=== PATIENT | female | born 1930 | race Caucasian/White ===

== ENCOUNTER → 2016-06-25 | Outpatient (REF) | payer MEDICARE ==
[~2016-06-25] MED LIST: ASPI81TA3 OR; SYNT50TA OR; ZETI10TA OR; travatan OU
== END ==
LOC: M SMT 12:39
PROVIDERS: ATTEND Nurse Practitioner Family
DX: R32 Unspecified urinary incontinence (principal)

== ENCOUNTER → 2016-07-01 | Outpatient (CLI) | payer MEDICARE ==
--- NOTE | 2016-07-01 09:39 | REP ---
Clinical: Recurrent urinary tract infection. Technique: Real time [place] scale and color evaluation using curved array transducer. Findings: The bilateral kidneys are essentially normal in contour, size, echogenicity, and reniform shape without hydronephrosis, nephrolithiasis, or renal mass lesion. No perinephric fluid collections are identified. Right kidney measures 11.1 x 4.2 x 4.4 cm. Left kidney measures 10.2 x 4.8 x 5.7 cm with 2.3 cm simple lower pole cyst. The bladder demonstrates few small diverticula and no evidence for significant wall thickening or mass lesion. Bilateral ureteral jets are identified. Prevoid volume equals 472 ml. Postvoid volume equals 225 ml. Postvoid residual equals 47%. Impression: 1. Relatively normal appearance of the bilateral kidneys with 2.3 cm simple lower pole left renal cyst. 2. Bladder demonstrates few likely chronic benign diverticula along with increased postvoid residual volume based on current examination. Signed by Chandana Mosquera MD 07/01/2016 09:31 A
== END ==
LOC: M SMT 08:31
PROVIDERS: ATTEND Nurse Practitioner Family
DX: N39.0 Urinary tract infection, site not specified (principal)

== ENCOUNTER → 2016-09-30 | Outpatient (CLI) | payer MEDICARE ==
--- NOTE | 2016-10-04 06:42 | RADONC ---
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 ECOG PERFORMANCE STATUS: 0. CONSULTATION NOTE: Ms. 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 HISTORY OF PRESENT ILLNESS: The patient was in her usual state of health until she recently and recently noticed a small scaly lesion over her left upper lip measuring approximately 0.75 cm. On 09/10/2016, the patient underwent excisional biopsy and pathology revealed an ulcerated basal cell carcinoma, nodular type. The tumor was present at the lateral margin of resection. The patient is now presenting for consideration of postoperative radiation therapy in attempt to increase local control. PAST MEDICAL HISTORY: The patient's past medical history is positive for a right-sided breast cancer which was treated with lumpectomy and postoperative radiation therapy in this department in 1997. It is also positive for arthritis, cataracts, cardiac problems and hypothyroidism. She has hypertension and history of urinary tract infections. ALLERGIES: The patient is allergic to PENICILLIN. SOCIAL HISTORY: The patient quit smoking in 1961. She had smoked a half-pack of cigarettes per day prior to that. She drinks alcohol socially. FAMILY HISTORY: The patient's family history is positive for a sister with breast cancer and two brothers with colon cancer. REVIEW OF SYSTEMS: The patient's review of systems is positive for some difficulty swallowing since she had coronary bypass surgery. It is otherwise noncontributory. Denies nausea, vomiting, fevers, chills, night sweats, diplopia, headaches, anxiety or depression, anorexia, weight loss, visual disturbances, chest pain, urinary or bowel difficulties, bone pain, or neurological problems. PHYSICAL EXAMINATION: The patient is a well-developed, well-nourished, elderly white female in no acute distress. HEENT: Exam is normocephalic, atraumatic. Extraocular movements are intact. There is a small 1-cm reddish raised area over the patient's upper left lip. There are no other lesions present over the patient's scalp, face or neck. Her oral cavity reveals no lesions, nodularity or evidence of disease. There is no palpable preauricular, cervical, supraclavicular, infraclavicular or axillary lymphadenopathy present. Lungs: Clear to auscultation and percussion. Heart has a regular rate and rhythm. ASSESSMENT: Ms. Perales is presenting to us today with what appears to be a stage I, T1N0M0, basal cell carcinoma of her left upper lip. Clearly, the patient is a candidate for this radiation treatment and I have so informed her. I have discussed with the patient in detail the potential benefits as well as possible acute and chronic sequelae of external beam radiation therapy. We discussed logistics of treatment planning, simulation and subsequent fractionated daily radiation treatments. I have scheduled the patient for the next available simulation slot and radiation treatments will begin subsequently. Thank you for allowing us to participate in the care of this very pleasant woman. If I can be of any further assistance or provide you with any information, please free to contact me anytime. As always warm regards. cc: *Adrián Mata MD
== END ==
LOC: M ONCR 13:10
PROVIDERS: ATTEND Radiology Radiation Oncology
DX: C44.01 Basal cell carcinoma of skin of lip (principal); Z85.3 Personal history of malignant neoplasm of breast; M19.90 Unspecified osteoarthritis, unspecified site; I10 Essential (primary) hypertension; E03.9 Hypothyroidism, unspecified; Z92.3 Personal history of irradiation

== ENCOUNTER 2016-10-06 14:03 | Outpatient (RCR) | payer MEDICARE ==
--- NOTE | 2016-10-06 14:14 | RADONC ---
RADIATION ONCOLOGY SIMULATION NOTE: DATE: 10/06/2016 CHART NO: [id number] Ms. Perales was taken to the linear accelerator today for clinical setup of her electron beam upper lip field. Setup was accomplished without difficulty or discomfort. Radiation treatment planning is underway and radiation treatments will begin subsequently. An immobilization device was created and will be used throughout the course of treatment. Lead shielding was placed under the treated lip to protect her teeth and gums. Lead eye bauer were also placed over the patient's eyes. 0.5 cm of tissue equivalent bolus will be utilized. I was physically present throughout the course of CT simulation.
== END 2016-10-17 ==
LOC: M ONCR 14:03
PROVIDERS: ATTEND Radiology Radiation Oncology
DX: C00.0 Malignant neoplasm of external upper lip (principal)

== ENCOUNTER 2016-10-18 13:44 | Outpatient (RCR) | payer MEDICARE ==
--- NOTE | 2016-10-19 10:38 | RADONC ---
RADIATION ONCOLOGY PROGRESS NOTE DATE: 10/18/2016 CHART NUMBER: [id number] Ms. Perales underwent her first fraction of radiation today to her upper lip. It was treated without difficulty or discomfort. The patient's review of systems noncontributory. She denies nausea, vomiting, fevers, chills, night sweats, diplopia, headaches, anxiety or depression, anorexia, weight loss, visual disturbances, chest pain, urinary or bowel difficulties, bone pain, or neurological problems. PHYSICAL EXAMINATION: The patient's skin remains unchanged with no evidence of radiation change present. Her physical exam remains unchanged since time of consultation. Ms. Perales tolerated her first fraction quite well and radiation will continue as scheduled.
--- NOTE | 2016-10-26 07:57 | RADONC ---
RADIATION ONCOLOGY PROGRESS NOTE DATE: 10/25/2016 CHART NUMBER: [id number]. PROGRESS NOTE: Ms. Perales is presently a dose of 1200 cGy to her upper lip and is tolerating treatments quite well at this point with no significant difficulties related to her radiation therapy other than some itchy skin. REVIEW OF SYSTEMS: The patient's review of systems is positive for a CT scan but is otherwise noncontributory. Denies nausea, vomiting, fevers, chills, night sweats, diplopia, headaches, anxiety or depression, anorexia, weight loss, visual disturbances, chest pain, urinary or bowel difficulties, bone pain, or neurological problems. PHYSICAL EXAMINATION: The patient's skin is in excellent condition with no evidence of radiation change present. There is no moist or dry desquamation. The remainder of her physical exam remains unchanged. Ms. Perales is tolerating treatments quite well and radiation will continue as scheduled.
--- NOTE | 2016-11-02 09:41 | RADONC ---
RADIATION ONCOLOGY PROGRESS NOTE DATE: 11/01/2016 CHART NUMBER: [id number] Ms. Perales is presently at a dose of 2200 cGy to her upper lip and is tolerating treatments quite well at this point with no significant difficulties related to her radiation therapy other than some tenderness on the inside of her lip. REVIEW OF SYSTEMS: The patient's review of systems is positive for some lip tenderness, but is otherwise noncontributory. She denies nausea, vomiting, fevers, chills, night sweats, diplopia, headaches, anxiety or depression, anorexia, weight loss, visual disturbances, chest pain, urinary or bowel difficulties, bone pain, or neurological problems. PHYSICAL EXAMINATION: The patient's skin shows some mild to minimal erythema present on the outside. She has some minimal mucositis on the inside of her lip. The remainder of her physical exam remains unchanged. Ms. Perales is tolerating treatments quite well and radiation will continue as scheduled.
--- NOTE | 2016-11-09 06:44 | RADONC ---
RADIATION ONCOLOGY PROGRESS NOTE: DATE: 11/08/2016 CHART NUMBER: [id number]. PROGRESS NOTE: Ms. Perales is presently a dose of 3200 cGy to her upper lip and is tolerating her treatments fairly well. She is complaining of lymph pain and discomfort. REVIEW OF SYSTEMS: The patient's review of systems is positive for lip discomfort but is otherwise noncontributory. Denies nausea, vomiting, fevers, chills, night sweats, diplopia, headaches, anxiety or depression, anorexia, weight loss, visual disturbances, chest pain, urinary or bowel difficulties, bone pain, or neurological problems. PHYSICAL EXAMINATION: The patient's skin shows some erythema present over the treated field. There is no evidence of moist or dry desquamation. On the underside of the lip There is some moderate mucositis. The remainder of the physical exam remains unchanged. Ms. Perales is tolerating treatments quite well and radiation will continue as scheduled.
--- NOTE | 2016-11-17 06:54 | RADONC ---
RADIATION ONCOLOGY PROGRESS NOTE DATE: 11/16/2016 CHART NUMBER: [id number] Ms. Perales is presently at a dose of 3600 cGy to her upper lip and is tolerating her treatments fairly well. She is complaining of some lip pain. REVIEW OF SYSTEMS: The patient's review of systems is positive for lip pain, but is otherwise noncontributory. Denies nausea, vomiting, fevers, chills, night sweats, diplopia, headaches, anxiety or depression, anorexia, weight loss, visual disturbances, chest pain, urinary or bowel difficulties, bone pain, or neurological problems. PHYSICAL EXAMINATION: The patient's skin is in good condition with no evidence of moist or dry desquamation. The remainder of her physical exam remains unchanged. Ms. Perales is tolerating treatments quite well and radiation will continue as scheduled.
== END 2016-11-17 ==
LOC: M ONCR 13:44
PROVIDERS: ATTEND Radiology Radiation Oncology
DX: C00.0 Malignant neoplasm of external upper lip (principal)

== ENCOUNTER 2016-11-18 14:26 | Outpatient (RCR) | payer MEDICARE ==
--- NOTE | 2016-11-24 08:02 | RADONC ---
RADIATION ONCOLOGY PROGRESS NOTE DATE: 11/23/2016 CHART NUMBER: [id number] Ms. Perales is presently at a dose of 4600 cGy to her upper lip and is tolerating treatments quite well at this point with no complaints related to her radiation therapy. She is having no increase in pain. She continues to have lip pain however. She has no other complaints related to her radiation therapy. The patient's review of systems is positive for some lip pain, but is otherwise noncontributory. Denies nausea, vomiting, fevers, chills, night sweats, diplopia, headaches, anxiety or depression, anorexia, weight loss, visual disturbances, chest pain, urinary or bowel difficulties, bone pain, or neurological problems. PHYSICAL EXAMINATION: There is some erythema of the skin over the upper lip as well as some mild mucositis just under the upper lip, but her physical exam is otherwise unchanged. Ms. Perales is tolerating her treatments quite well and radiation will continue as scheduled.
--- NOTE | 2016-11-30 07:41 | RADONC ---
RADIATION ONCOLOGY PROGRESS NOTE DATE: 11/29/2016 CHART NUMBER: [id number] Ms. Perales is presently at a dose of 5400 cGy to her upper lip and is tolerating treatments quite well at this point with no significant difficulties related to her radiation therapy other than some lip discomfort. The patient's review of systems is positive for some discomfort on her inner lip, but is otherwise noncontributory. She denies nausea, vomiting, fevers, chills, night sweats, diplopia, headaches, anxiety or depression, anorexia, weight loss, visual disturbances, chest pain, urinary or bowel difficulties, bone pain, or neurological problems. PHYSICAL EXAMINATION: The patient's skin is in good condition with just some erythema present. There is no moist or dry desquamation. The remainder of physical exam remains unchanged. Ms. Perales is tolerating treatments quite well and radiation will continue as scheduled.
--- NOTE | 2016-12-03 13:14 | RADONC ---
RADIATION ONCOLOGY TREATMENT SUMMARY DATE: 12/02/2016 CHART NUMBER: [id number] DIAGNOSIS: Basal cell carcinoma of the upper lip. STAGE: I, T1N0M0. ECOG PERFORMANCE STATUS: 0 TREATMENT SUMMARY: Ms. Perales is a delightful 86-year-old white female with the diagnosis of a stage I, T1N0M0, basal cell carcinoma of the left upper lip who presented to us for consideration of postoperative radiation therapy in an attempt to achieve local control and cure. We treated the patient to her upper lip for a dose of 6000 cGy delivered in 30 fractions of 200 cGy each over 45 elapsed days from 10/18/2016 through 12/02/2016. The patient's upper lip was treated on the linear accelerator utilizing a 6 MeV electron beam prescribed to the 90% isodose line via an en phos technique. 1/2 cm of tissue equivalent bolus was placed over the field. Ms. Perales tolerated her treatment quite well with no significant difficulties related to her radiation therapy. She did have some tenderness of the lip. The patient completed therapy as prescribed without interruption. I have scheduled the patient to see me again in one month for further followup. She will also continue to be followed by her other physicians as well. Thank you for allowing us to participate in the care of this very pleasant woman. If I could provide you with any information or be of any assistance please feel free to contact me anytime. cc: Adrián Mata MD
== END 2016-12-17 ==
LOC: M ONCR 14:26
PROVIDERS: ATTEND Radiology Radiation Oncology
DX: C00.0 Malignant neoplasm of external upper lip (principal)

== ENCOUNTER → 2016-12-29 | Outpatient (CLI) | payer MEDICARE ==
--- NOTE | 2016-12-29 14:34 | RADONC ---
RADIATION ONCOLOGY FOLLOWUP NOTE DATE: 12/29/2016 CHART NUMBER: [id number] DIAGNOSIS: Basal cell carcinoma of upper lip. STAGE: I, T1N0M0. ECOG PERFORMANCE STATUS: 0 FOLLOWUP NOTE: Ms. Perales is a delightful 86-year-old white female with the diagnosis of a stage I, T1N0M0, basal cell carcinoma of the left upper lip who is presenting to us today for routine followup visit 1 month post completion of external beam radiation therapy. The patient presents today reporting that she is doing quite well with no complaints at this time related to her radiation therapy or disease other than some discomfort upon using toothpaste. REVIEW OF SYSTEMS: The patient's review of systems is generally noncontributory. She denies nausea, vomiting, fevers, chills, night sweats, diplopia, headaches, anxiety or depression, anorexia, weight loss, visual disturbances, chest pain, urinary or bowel difficulties, bone pain, or neurological problems. PHYSICAL EXAMINATION: The patient's skin is in excellent condition with no evidence of moist or dry desquamation. There is no evidence of radiation change present. There is no evidence of nodularity, ulceration, residual or recurrent disease. There is no palpable preauricular, cervical, supraclavicular or infraclavicular lymphadenopathy. Her lungs are clear to auscultation and percussion. ASSESSMENT: The patient is clinically KINZA at this time and will be seen by us again in 6 months for further followup. She will also continue to be followed by her other physicians as well. cc: Adrián Mata MD
== END ==
LOC: M ONCR 09:54
PROVIDERS: ATTEND Radiology Radiation Oncology
DX: C00.0 Malignant neoplasm of external upper lip (principal)

== ENCOUNTER → 2017-03-03 | Outpatient (CLI) | payer MEDICARE ==
[2017-03-03 07:44] LABS: MEAN CORPUSCULAR HEMOGLOBIN 29.1 pg (27.0-33.0); MEAN CORPUSCULAR HGB CONC 32.9 g/dl (32.0-36.5); MEAN CORPUSCULAR VOLUME 88.4 fl (80.0-96.0); RED CELL DISTRIBUTION WIDTH 13.4 % (11.5-14.5); WHITE BLOOD COUNT 5.9 K/mm3 (4.0-10.0)
[2017-03-03 08:36] LABS: ALBUMIN 3.7 GM/DL (3.2-5.2); ALBUMIN/GLOBULIN RATIO 1.06 (1.00-1.93); ALKALINE PHOSPHATASE 92 U/L (45-117); ALT/SGPT 32 U/L (12-78); ANION GAP 9 MEQ/L (8-16); AST/SGOT 19 U/L (15-37); BILIRUBIN,TOTAL 0.3 MG/DL (0.2-1.0); BLOOD UREA NITROGEN 11 MG/DL (7-18); CARBON DIOXIDE LEVEL 28 MEQ/L (21-32); CHLORIDE LEVEL 106 MEQ/L (98-107); CHOLESTEROL LEVEL 133 MG/DL (<200); GLOMERULAR FILTRATION RATE > 60.0 (>32); GLUCOSE, FASTING 95 MG/DL (83-110); POTASSIUM SERUM 4.3 MEQ/L (3.5-5.1); SODIUM LEVEL 143 MEQ/L (136-145); TOTAL PROTEIN 7.2 GM/DL (6.4-8.2); TRIGLYCERIDES LEVEL 131 MG/DL (<150)
--- NOTE | 2017-03-03 08:57 | REP ---
Chest x-ray: Two views. History: Hypertension. Right rib fracture. Sciatica. Comparison chest x-ray: January 29, 2016. Findings: Patient is status post prior median sternotomy. The thoracic aorta is tortuous as before. Heart is not enlarged. There are clips in the axillary soft tissues bilaterally and the left breast is surgically absent. Pleural angles are sharp. Lung huggins are clear otherwise. Pulmonary vasculature is not increased. There are degenerative changes in the thoracic spine. Impression: Status post prior median sternotomy. No active cardiopulmonary disease seen. Signed by Kostas Hodges MD 03/03/2017 10:15 A
--- NOTE | 2017-03-03 08:58 | REP ---
RIGHT RIB SERIES: Four views. HISTORY: Right rib fracture. Hypertension. Comparison chest x-ray January 28, 1926. FINDINGS: There is some diffuse osteopenia. Prior median sternotomy wires are seen and there are axillary clips noted on the right. Multiple right rib views show no visible rib fracture or bony destructive lesion. IMPRESSION: Diffuse osteopenia. No rib fracture seen. Signed by Kostas Hodges MD 03/03/2017 10:15 A
--- NOTE | 2017-03-03 09:17 | REP ---
Lumbar spine complete: 03/03/2017. Clinical history: Sciatica, back pain. Comparison: 07/10/2005. Findings: Five views are provided. The normal lumbar lordosis is slightly reduced. There is diffuse lumbar spondylosis with marginal osteophytes throughout. There is disc space narrowing greatest at L4-5 but present at all levels Relatively sparing L1-2 level. The lower thoracic levels also show spondylosis with disc space narrowing and marginal osteophytes. There is facet arthropathy at L4-5 and L5-S1. No spondylolysis or spondylolisthesis at those levels. A few millimeters of retrolisthesis noted at L2 on L3 due to facet arthropathy. Arterial calcifications in the aorta but no aneurysm. Impression. 1. Degenerative disc disease and facet arthritis as described. No spondylolysis, compression fracture or other acute finding. Signed by Shyam Wood MD 03/03/2017 10:24 A
== END ==
LOC: M LAB 07:11
PROVIDERS: ATTEND Family Medicine
DX: M54.5 Low back pain (principal); I10 Essential (primary) hypertension

== ENCOUNTER → 2017-03-24 | Outpatient (CLI) | payer MEDICARE ==
[2017-03-24 10:09] LABS: MEAN CORPUSCULAR HEMOGLOBIN 28.5 pg (27.0-33.0); MEAN CORPUSCULAR HGB CONC 32.7 g/dl (32.0-36.5); MEAN CORPUSCULAR VOLUME 87.1 fl (80.0-96.0); RED CELL DISTRIBUTION WIDTH 13.4 % (11.5-14.5); WHITE BLOOD COUNT 8.5 10^3/uL (4.0-10.0)
[2017-03-24 10:36] LABS: ALBUMIN 3.9 GM/DL (3.2-5.2); ALBUMIN/GLOBULIN RATIO 1.11 (1.00-1.93); ALKALINE PHOSPHATASE 123 U/L (45-117); ALT/SGPT 58 U/L (12-78); ANION GAP 9 MEQ/L (8-16); AST/SGOT 35 U/L (15-37); BILIRUBIN,TOTAL 0.4 MG/DL (0.2-1.0); BLOOD UREA NITROGEN 8 MG/DL (7-18); CALCIUM LEVEL 9.1 MG/DL (8.8-10.2); CARBON DIOXIDE LEVEL 28 MEQ/L (21-32); CHLORIDE LEVEL 102 MEQ/L (98-107); CREATININE FOR GFR 0.67 MG/DL (0.55-1.02); GLOMERULAR FILTRATION RATE > 60.0 (>32); GLUCOSE, FASTING 93 MG/DL (83-110); MAGNESIUM LEVEL 2.2 MG/DL (1.8-2.4); POTASSIUM SERUM 4.4 MEQ/L (3.5-5.1); SODIUM LEVEL 139 MEQ/L (136-145); TOTAL PROTEIN 7.4 GM/DL (6.4-8.2)
== END ==
LOC: M LAB 09:03
PROVIDERS: ATTEND Family Medicine
DX: D64.9 Anemia, unspecified (principal)

== ENCOUNTER → 2017-06-29 | Outpatient (CLI) | payer MEDICARE | LOC: M ONCR 14:15 | DX: C00.0 Malignant neoplasm of external upper lip (principal) | CPT/HCPCS: G0463 ==

== ENCOUNTER → 2018-05-05 | Outpatient (CLI) | payer MEDICARE | LOC: M ONCR 09:52 | DX: C00.0 Malignant neoplasm of external upper lip (principal) | CPT/HCPCS: G0463 ==

== ENCOUNTER → 2018-06-08 | Outpatient (CLI) | payer MEDICARE ==
[~2018-06-08] MED LIST changes: +LIDO1SOL7 PO
--- NOTE | 2018-06-09 15:21 | RADONC ---
RADIATION ONCOLOGY CONSULTATION NOTE DATE: 06/08/2018 CHART NUMBER: [id number] DIAGNOSIS: Basal cell carcinoma left lower leg. ECOG PERFORMANCE STATUS: 0. CONSULTATION NOTE: Ms. Perales is a delightful 87-year-old white female who is well-known to our department and has been treated to multiple sites in the past. She is now presenting with a basal cell carcinoma involving her left lower leg for consideration of postoperative radiation therapy in attempt to increase the likelihood of achieving local control and cure. HISTORY OF PRESENT ILLNESS: The patient reports that she had a lesion present on the lateral aspect just near her knee on the left lower leg for several years. On 05/16/2018 she was seen by Dr. Adrián Mata and an excision was taken. Pathology revealed a basal cell carcinoma superficial type focally involving the peripheral margin. She is now presenting for consideration of postoperative radiation therapy as a therapeutic option. PAST MEDICAL HISTORY: The patient's past medical history is positive for a right-sided breast cancer which was treated with lumpectomy and postoperative radiation therapy in this department in 1997. She also had a history of a basal cell carcinoma of the upper lip which was treated in our department in 2017. She has a history of arthritis, cataracts, cardiac problems and hypothyroidism. She has hypertension and a history of urinary tract infections. ALLERGIES: The patient is allergic to PENICILLIN. SOCIAL HISTORY: The patient quit smoking in 1961. She drinks alcohol socially. FAMILY HISTORY: The patient's family history is positive for sister with breast cancer and two brothers with colon cancer. REVIEW OF SYSTEMS: The patient's review of systems is noncontributory. She denies nausea, vomiting, fevers, chills, night sweats, diplopia, headaches, anxiety or depression, anorexia, weight loss, visual disturbances, chest pain, urinary or bowel difficulties, bone pain, or neurological problems. PHYSICAL EXAMINATION: The patient is a well-developed, well-nourished white female in no acute distress. HEENT: Exam is normocephalic, atraumatic. Extraocular movements are intact. There is no palpable cervical, supraclavicular, infraclavicular, axillary or inguinal lymphadenopathy present. Her lungs are clear to auscultation and percussion. Heart has regular rate and rhythm. The skin over the patient's left lateral knee region shows a healed surgical scar present consistent with her above history. The remainder of the skin shows no evidence of nodularity, ulceration or disease. ASSESSMENT: Clearly the patient is a candidate for external beam radiation therapy and I have so informed her. I have discussed with the patient in detail the potential benefits as well as possible acute and chronic sequelae of external beam radiation therapy. We discussed the logistics of treatment planning, simulation and subsequent fractionated daily radiation treatments. After a lengthy discussion this patient would prefer not to drive and come here during the middle of winter in the worst of the snowy season. In light of this, and the non-aggressive nature of her disease, I have scheduled her to initiate treatments at the end of July. I have instructed her to contact our office if she wishes to start radiation sooner or if she feels any nodularity or any evidence of some type of recurrence. I let her know that our local control rate should be over 90% whether we treat her now or in July. Once again considering her advanced age, lengthy history of this lesion, and non-aggressive nature of her lesion I think it reasonable to allow her to enjoy the holidays and avoid walking and driving through the middle of winter for this treatment. Thank you once again for allowing us to participate in the care of this very pleasant woman. If I could be of any further assistance or provide you with any information, please free to contact me anytime. cc: MD LIZZ Graf
== END ==
LOC: M ONCR 12:47
PROVIDERS: ATTEND Radiology Radiation Oncology
DX: C44.719 Basal cell carcinoma of skin of left lower limb, including hip (principal)

== ENCOUNTER 2018-08-09 15:32 | Emergency (ER) | payer MEDICARE ==
[~2018-08-09] VITALS: Ht 162.6 cm; Wt 59.1 kg
[2018-08-09] MEDS ORDERED: AUGM0.05 (15:44)
[2018-08-09] MEDS ORDERED: AZIT-12 (15:44)
[2018-08-09] MEDS ORDERED: METO1TAB32 (15:44)
[2018-08-09] MEDS ORDERED: ATOR40TA75 (15:44)
[2018-08-09] MEDS ORDERED: MELO7.5T7 (15:46)
[2018-08-09] MEDS ORDERED: CVS20TAB PO (15:46)
[2018-08-09 17:12] LABS: BASO % 0.2 % (0.0-1.0); EOS # 0.2 10^3/uL (0.0-0.50); EOS % 1.3 % (0.0-3.0); HEMATOCRIT 38.5 % (36.0-47.0); HEMOGLOBIN 12.6 g/dl (12.0-15.5); LYMPH # 1.7 10^3/uL (1.5-4.5); LYMPH % 12.8 % (24.0-44.0); MEAN CORPUSCULAR HEMOGLOBIN 29.2 pg (27.0-33.0); MEAN CORPUSCULAR HGB CONC 32.7 g/dl (32.0-36.5); MEAN CORPUSCULAR VOLUME 89.3 fl (80.0-96.0); MONO # 0.9 10^3/uL (0.0-0.8); MONO % 7.3 % (0.0-5.0); NEUTROPHILS # 10.1 10^3/uL (1.8-7.7); NEUTROPHILS % 77.5 % (36.0-66.0); PLATELET COUNT, AUTOMATED 167 10^3/uL (150-450); RED BLOOD COUNT 4.31 10^6/uL (4.00-5.40)
[2018-08-09 17:40] LABS: BLOOD UREA NITROGEN 13 MG/DL (7-18); CALCIUM LEVEL 8.1 MG/DL (8.8-10.2); CARBON DIOXIDE LEVEL 31 MEQ/L (21-32); CHLORIDE LEVEL 102 MEQ/L (98-107); CREATININE FOR GFR 0.58 MG/DL (0.55-1.30); GLOMERULAR FILTRATION RATE > 60.0 (>32); GLUCOSE, FASTING 83 MG/DL (70-100); POTASSIUM SERUM 4.1 MEQ/L (3.5-5.1); SODIUM LEVEL 138 MEQ/L (136-145)
[2018-08-09 18:32] VITALS: BP 155/70
== END 2018-08-09 18:34 | disposition home or self-care (01) ==
LOC: M ED 15:32
DX: L03.113 Cellulitis of right upper limb (principal); H61.21 Impacted cerumen, right ear; I10 Essential (primary) hypertension; E03.9 Hypothyroidism, unspecified; I25.2 Old myocardial infarction; Z95.1 Presence of aortocoronary bypass graft; Z79.899 Other long term (current) drug therapy; Z79.82 Long term (current) use of aspirin; Z88.0 Allergy status to penicillin; Z87.891 Personal history of nicotine dependence

== ENCOUNTER 2018-09-15 09:33 | Outpatient (RCR) | payer MEDICARE ==
--- NOTE | 2018-08-29 15:29 | RADONC ---
RADIATION ONCOLOGY SIMULATION NOTE DATE: 08/28/2018 CHART NUMBER: [id number] SIMULATION NOTE: Ms. Perales was taken to the linear accelerator today for clinical setup of her electron beam left leg field. Setup was accomplished without difficulty or discomfort. Radiation treatment planning is underway and radiation treatments will begin subsequently. An immobilization device was created and will be used throughout the course of treatment. It was created without difficulty or discomfort. I was physically present throughout the course of electron beam setup.
--- NOTE | 2018-09-05 07:48 | RADONC ---
RADIATION ONCOLOGY PROGRESS NOTE DATE: 09/04/2018 CHART NUMBER: [id number] Ms. Perales is presently a dose of 1000 cGy to her left calf and is tolerating treatments quite well at this point with no complaints related to her radiation therapy. She has got no skin pain or other problems. The patient's review of systems is noncontributory. She denies nausea, vomiting, fevers, chills, night sweats, diplopia, headaches, anxiety or depression, anorexia, weight loss, visual disturbances, chest pain, urinary or bowel difficulties, bone pain, or neurological problems. PHYSICAL EXAMINATION: The patient's skin is in excellent condition with no evidence of radiation change present. The remainder of her physical exam remains unchanged. Ms. Perales is tolerating treatments quite well and radiation will continue as scheduled.
--- NOTE | 2018-09-12 08:24 | RADONC ---
RADIATION ONCOLOGY PROGRESS NOTE DATE: 09/11/2018 CHART NUMBER: [id number]. Ms. Perales is presently at a dose of 2250 cGy to the skin of her left calf and is tolerating treatments quite well at this point with no complaints related to her radiation therapy. She is having no skin discomfort or other problems. The patient's review of systems is noncontributory. Denies nausea, vomiting, fevers, chills, night sweats, diplopia, headaches, anxiety or depression, anorexia, weight loss, visual disturbances, chest pain, urinary or bowel difficulties, bone pain, or neurological problems. PHYSICAL EXAMINATION: The patient's skin is in good condition with no evidence of moist or dry desquamation. The remainder of her physical exam remains unchanged. Ms. Perales is tolerating treatments quite well, and radiation will continue as scheduled.
[~2018-09-15 09:33] MED LIST changes: +ATOR40TA75; +AUGM0.05; +AZIT-12; +CVS20TAB PO; +MELO7.5T7; +METO1TAB32
== END 2018-09-17 ==
LOC: M ONCR 09:33
PROVIDERS: ATTEND Radiology Radiation Oncology
DX: C44.719 Basal cell carcinoma of skin of left lower limb, including hip (principal)

== ENCOUNTER 2018-09-26 09:35 | Outpatient (RCR) | payer MEDICARE ==
--- NOTE | 2018-09-19 14:49 | RADONC ---
RADIATION ONCOLOGY PROGRESS NOTE DATE: 09/18/2018 CHART NUMBER: [id number] PROGRESS NOTE: Ms. Perales is presently at a dose of 3500 cGy to her left calf and is tolerating treatments quite well at this point with no complaints at this time related to her radiation therapy or disease. She has no skin or bone pain. REVIEW OF SYSTEMS: The patient's review of systems is noncontributory. Denies nausea, vomiting, fevers, chills, night sweats, diplopia, headaches, anxiety or depression, anorexia, weight loss, visual disturbances, chest pain, urinary or bowel difficulties, bone pain, or neurological problems. PHYSICAL EXAMINATION: The patient's skin is in excellent condition with no evidence of moist or dry desquamation. The remainder of physical examination remains unchanged. Ms. Perales is tolerating treatments quite well. Radiation will continue as scheduled.
--- NOTE | 2018-09-25 10:45 | RADONC ---
RADIATION ONCOLOGY PROGRESS NOTE DATE: 09/25/2018 CHART NUMBER: [id number] Ms. Perales is presently at a dose of 4750 cGy to her left calf and is tolerating treatments quite well at this point with no complaints related to her radiation therapy. She has no skin pain or other problems. The patient's review of systems is noncontributory. She denies nausea, vomiting, fevers, chills, night sweats, diplopia, headaches, anxiety or depression, anorexia, weight loss, visual disturbances, chest pain, urinary or bowel difficulties, bone pain, or neurological problems. PHYSICAL EXAMINATION: The patient's skin is in good condition with just some erythema and tanning present. There is no moist or dry desquamation. The remainder of her physical exam remains unchanged. Ms. Perales is tolerating treatments quite well and radiation is scheduled for completion tomorrow.
[~2018-09-26 09:35] MED LIST changes: -CVS20TAB PO; -LIDO1SOL7 PO; +LIDO1SOL8 PO; +OMEP20TA9 PO
--- NOTE | 2018-09-26 11:04 | RADONC ---
RADIATION ONCOLOGY TREATMENT SUMMARY DATE: 09/26/2018 CHART NUMBER: [id number] DIAGNOSIS: Basal cell carcinoma left lower leg. ECOG PERFORMANCE STATUS: 0 TREATMENT SUMMARY: Ms. Perales is a delightful, 88-year-old white female who presented to us with a basal cell carcinoma of her left lower leg for consideration of postoperative radiation therapy in attempt to achieve local control and cure. We treated the patient to her left calf for a total dose of 5000 cGy delivered in 20 fractions of 250 cGy each over 27 elapsed days from 08/30/2018 through 09/26/2018. The patient's calf was treated on a linear accelerator utilizing a 6 MV photon beam prescribed to the 90% isodose line via non phos field. 0.5 cm of tissue equivalent bolus was placed over the treatment field. Ms. Perales tolerated her treatments quite well and was able complete therapy as prescribed without interruption and no difficulties. I have scheduled the patient to see me again in 1 month for further followup. She will also continue to be followed by her other physicians as well. cc: Adrián Mata MD
== END 2018-10-17 ==
LOC: M ONCR 09:35
PROVIDERS: ATTEND Radiology Radiation Oncology
DX: C44.719 Basal cell carcinoma of skin of left lower limb, including hip (principal)

== ENCOUNTER → 2018-10-25 | Outpatient (CLI) | payer MEDICARE ==
--- NOTE | 2018-10-26 09:40 | RADONC ---
RADIATION ONCOLOGY FOLLOWUP NOTE DATE: 10/25/2018 CHART #: [id number] DIAGNOSIS: Basal cell carcinoma of the left lower leg. ECOG PERFORMANCE STATUS: 0. FOLLOWUP NOTE: Ms. Perales is a very pleasant 88-year-old white female with the diagnosis of a basal cell carcinoma of the left lower leg who is presenting to us today for routine followup visit 1 month post completion of external beam radiation therapy. The patient presents today reporting that she is doing quite good with no complaints at this time related to her radiation therapy or disease. She has no skin pain or other discomforts. REVIEW OF SYSTEMS: The patient's review of systems is noncontributory. Denies nausea, vomiting, fevers, chills, night sweats, diplopia, headaches, anxiety or depression, anorexia, weight loss, visual disturbances, chest pain, urinary or bowel difficulties, bone pain, or neurological problems. PHYSICAL EXAMINATION: The patient's skin is in excellent condition with no evidence of moist or dry desquamation. There is radiation tanning present. There is no evidence of nodularity. There is no palpable cervical, supraclavicular, infraclavicular or axillary lymphadenopathy present. The remainder of her physical exam remains unchanged. She does have a small mole present over the skin of her left lower neck which she is asking me about at this time. ASSESSMENT: The patient is clinically KINZA at this time and is being discharged from my followup except on a p.r.n. basis. I do not believe the lesion is suspicious on her neck, however, I have asked her to contact Dr. Mata and obtain his expert opinion. I will defer to his more thorough experience and wisdom in this matter. cc: Adrián Mata MD
== END ==
LOC: M ONCR 09:20
PROVIDERS: ATTEND Radiology Radiation Oncology
DX: Z85.828 Personal history of other malignant neoplasm of skin (principal)